=== PATIENT | female | born 1955 | race Caucasian/White ===

== ENCOUNTER → 2017-09-12 | Outpatient (CLI) | payer OTHER | LOC: M.RAD 12:58 | DX: Z12.31 Encounter for screening mammogram for malignant neoplasm of breast (principal) ==

== ENCOUNTER → 2019-02-04 | Outpatient (CLI) | payer OTHER | LOC: M.RAD 15:26 | DX: Z12.31 Encounter for screening mammogram for malignant neoplasm of breast (principal); M81.0 Age-related osteoporosis without current pathological fracture; N63.12 Unspecified lump in the right breast, upper inner quadrant; Z78.0 Asymptomatic menopausal state; Z96.642 Presence of left artificial hip joint ==

== ENCOUNTER → 2019-02-07 | Outpatient (CLI) | payer OTHER ==
[~2019-02-07] MED LIST: HYDROCODON-ACE1 EA11 PO; KEFLEX250 MG PO; LISINOPRIL10 MG PO
--- NOTE | 2019-02-18 12:05 | PATH ---
[address] [address] PATHOLOGY RPT PROCEDURE Name: MARKFLORENCIA YANNA Room: [facility] Lee#: [id number] Admission: 02/07/19 Date of : 59 Discharge: Report #: [id number] Path Case #: [id number] [facility] Accession Number: [id number] . 01 Material submitted: . breast - RIGHT BREAST. Modifiers: right . 01 Clinical history: . Right breast, 2.69 x 2.34 x 2.29 cm, 12:00, 2 cm from nipple . 02 Diagnosis: RIGHT BREAST, 12:00, 2 CM FROM NIPPLE, IMAGE GUIDED CORE BIOPSIES: - INFILTRATING LOBULAR CARCINOMA, LOW GRADE, SPANNING 10 MM, ASSOCIATED WITH CALCIFICATIONS. SEE COMMENT. LBQ/02/11/2019 . 02 Comment: Specimen type: Image guided core biopsies Tumor site: Right breast, 12:00, 2 cm from nipple Tumor quantitation: Approximately 90% of submitted tissues Histologic type: Lobular carcinoma Histologic grade: Low grade (I/III) Tubules, nuclei and mitoses: 3,1,1 LVSI: None identified Microcalcifications: Identified Markers: Breast tumor profile pending Block: A1 . The tumor infiltrates in the classic lobular fashion including abundant "[place] filing". Properly controlled immunohistochemical stains performed on A2 show the following results in the neoplastic cells, supporting the classification: . E-cadherin - Negative Keratin AE1/AE3 - Positive . No definite lobular carcinoma in situ and no ductal carcinoma in situ are seen. Breast tumor profile studies are pending on A1 and will be the subject of an addendum report. Mariaelena (acting [facility] Breast Navigator) notified at approximately 1510 on 02/08/2019. Reviewed with Dr. Jeferson Martines who agrees with the diagnosis. (MONA/db; 02/11/2019) . 02 Addendum: . Special studies report received from [facility], [address] [place] [address], [address], [place], [address], on case [id number], labeled with their number [id number], dated 02/16/2019. [place] [address] PATHOLOGY RPT PROCEDURE Name: FLORENCIA JULIAN Room: [facility]#: [id number] Admission: 02/07/19 Date of : 59 Discharge: Report #: [id number] Path Case #: [id number] Breast/Prognostic Marker Analysis . Specimen Site: Rt Breast,12:00, 2 cm FN, Breast Carcinoma (Biopsy) Specimen ID #: [id number] . ER (Estrogen Receptor) Present/Positive Percent: 98.00% Analysis: Manual Comments: Staining intensity: Strong . NV (Progesterone Receptor) Present/Positive Percent: 98.00% Analysis: Manual Comments: Staining intensity: Strong . HER2 Not Over-Expressed Score: 1+ Analysis: Manual . Ki-67 Borderline Proliferation Percent: 15.00% Analysis: Manual . Time to Fixation (Cold Ischemic Time): 3 minutes Duration of Fixation: 14 hours and 40 minutes Type of Fixative: 10% Neutral Buffered Formalin . at [employer]. Bernadine Cheatham M.D. Pathologist . . Methodology The HER2 Receptor protein expression is analyzed using the [employer] HER2 rabbit monoclonal antibody (clone 4B5). This assay is used for diagnostic determination of the HER2 protein over-expression in paraffin embedded, formalin fixed breast cancer tissue on the [employer] Benchmark. The specimen is processed using a polymer detection system. The membrane staining of the tumor is determined either by manual score or image analysis. This antibody is intended for in vitro diagnostic use. The score is reported as per package insert; 0, 1+, 2+, and 3+. This test is used for clinical purposes. . A rabbit monoclonal antibody (clone SP1) [place] [address] PATHOLOGY RPT PROCEDURE Name: FLORENCIA JULIAN Room: [facility]#: [id number] Admission: 02/07/19 Date of : 59 Discharge: Report #: [id number] Path Case #: [id number] Receptor is used to perform immunohistochemistry on routinely fixed (formalin) paraffin embedded tissue on the [employer] Benchmark. The specimen is processed using a polymer detection system. The percentage of stained tumor nuclei is determined either manually or by image analysis. This test is intended for in vitro diagnostic use. This test is used for clinical purposes. . A rabbit monoclonal antibody (clone 1E2) that recognized the Progesterone Receptor is used to perform immunohistochemistry on routinely fixed (formalin) paraffin embedded tissue on the [employer] Benchmark. The specimen is processed using a polymer detection system. The percentage of stained tumor nuclei is determined either manually or by image analysis. This test is intended for in vitro diagnostic use. This test is used for clinical purposes. . A rabbit monoclonal antibody (clone 30-9) that recognized Ki67 is used to perform immunohistochemistry on routinely fixed (formalin) paraffin embedded tissue on the [employer] Benchmark. The specimen is processed using a polymer detection system. The percentage of stained tumor nuclei is determined either manually or by image analysis. This test is intended for in vitro diagnostic use. This test is used for clinical purposes. . Intended Use: This antibody is intended for in vitro diagnostic (IVD) use. HER2 (4B5) is a rabbit monoclonal antibody intended for the semi-quantitative detection of HER2 antigen in sections of formalin-fixed, paraffin embedded normal and neoplastic tissue. . This antibody is intended for in vitro diagnostic (IVD) use. Estrogen Receptor (ER) (SP1) is a rabbit monoclonal antibody (IgG) that is intended for the qualitative detection of estrogen receptor (ER) antigen in sections of formalin-fixed, paraffin-embedded tissue. ER is a rabbit monoclonal antibody that recognizes human estrogen receptor alpha. . This antibody is intended for in vitro diagnostic (IVD) use. Progesterone Receptor (NV) (1E2) is a rabbit monoclonal antibody (IgG) that is intended for the qualitative detection of progesterone receptor (NV) antigen in sections of formalin fixed, paraffin embedded tissue. NV is a rabbit monoclonal antibody that recognizes the A and B forms of the human progesterone receptor. . This antibody is intended for in vitro diagnostic (IVD) use. Ki-67 (30-9) is a rabbit monoclonal antibody (IgG) directed against C-terminal portion of Ki-67 antigen. Staining for Ki-67 can be used to aid in assessing the proliferative activity of normal and neoplastic tissue. Ki-67 is a nuclear protein expressed in proliferating cells. During the cell cycle, the Ki-67 antigen is present in the G1, S, G2 and M phase but is absent in the G0 (quiescent phase). [place] [address] PATHOLOGY RPT PROCEDURE Name: FLORENCIA JULIAN Room: [facility].#: [id number] Admission: 02/07/19 Date of : 59 Discharge: Report #: [id number] Path Case #: [id number] . Disclaimer: This Test was performed by [facility] at [address] [address], [place], [address]. . [facility] is a business unit of [facility] a wholly-owned subsidiary of [employer]. . This assay has not been validated on decalcified tissues. Results should be interpreted with caution if this specimen was decalcified given the likelihood of false negativity on decalcified specimens. . Any image(s) that accompany this report is/are a door to door sales representative image(s) only and should not be used to render a diagnosis. . This interpretation is contingent on the specimen and the clinical information received. . For any special tests/stains performed, known positive cells or tissues are tested with each marker and examined to ensure positivity. Positive and negative internal controls, if present, react appropriately. . This analysis is an adjunct to the evaluation of the referring physician and does not represent a final diagnosis. . The immunohistochemistry tests performed at [facility] were validated on tissue fixed in 10% neutral buffered formalin. The performance characteristics of the tests performed on tissue processed in other fixatives is not known. . HER2 testing at [facility] is performed in compliance with the 2018 updated ASCO/CAP Clinical Practice Guideline Focused Update. If the result is EQUIVOCAL (2+), it must be confirmed by an alternative assay such as FISH or Dual GIANNA. REF: Christos BABB, ROSALBA Snow et al: Human Epidermal Growth Factor Receptor 2 Testing in Breast Cancer: ASCO/CAP Clinical Practice Guideline Focused Update. J Clin Oncol 36:9077-9812, 2018. . HER2 and ER/NV ASCO/CAP guidelines require fixation in neutral buffered formalin for a minimum of 6 and a maximum of 72 hours. Fixation times less than 6 hours may not adequately preserve cell proteins. Fixation times longer than 72 hours may cause excess cross-linking of proteins reducing the antigen available for staining. Either scenario can cause reduced staining; hence false negative results are possible and should be considered for these situations if the HER2 IHC score is less than 3+ or ER or NV is negative (no staining or <1% positive). It is recommended that specimens fixed longer than 72 hours with HER2 IHC scores less than 3+ be confirmed by HER2 FISH or Dual GIANNA. The time from biopsy/[place] [address] PATHOLOGY RPT PROCEDURE Name: FLORENCIA JULIAN Room: [facility] Lee#: [id number] Admission: 02/07/19 Date of : 59 Discharge: Report #: [id number] Path Case #: [id number] fixation in formalin (cold ischemic time) must be less than 1 hour. Time to fixation (cold ischemic time) greater than 1 hour should be interpreted with caution. HER2 testing, mainly HER2 by FISH, is particularly vulnerable since excessive cold ischemic time results in preferential loss of HER2 probe signals that may lead to false negative results. . SCORE STAINING PATTERN IN TUMOR CELLS INTERPRETATION RESULTS 0 No staining observed or incomplete, faint membrane staining in less than or equal to 10% of tumor cells. Negative 1+ Incomplete, faint membrane staining in greater than 10% of tumor cells. Negative 2+ Weak to moderate complete membrane staining observed in greater than 10% of tumor cells. Equivocal* *Must be confirmed by alternative assay (IHC/FISH/Dual GIANNA) 3+ Intense, complete membrane staining in greater than 10% of tumor cells. Positive . A complete copy of the report is on file. . Professional and Technical services performed by [email or web address] at [address] [address]. . ([facility] 02/18/2019) . [place]/02/18/2019 Addendum Electronically Signed by Lei Last MD, Pathologist . 02 Electronically signed: . Lei Last MD, Pathologist NPI- [id number] . 01 Gross description: . The specimen is received in formalin, labeled "Florencia Julian, right breast 12:00, 2 cm from nipple", are three fibrofatty cores and its fragments measuring 1.5 x 0.4 x 0.2 cm in aggregate. The specimen is entirely submitted in A1-A3. Specimen excised at: 0921 on 02/07/19, placed in formalin at: 0924 on 02/07/19, formalin exposure: Approximately 14 hours and 40 minutes. (SWS; 02/07/2019) [facility]/ . 02 Pathologist provided ICD-10: [facility] [address] [place] [address] PATHOLOGY RPT PROCEDURE Name: FLORENCIA JULIAN Room: [facility].#: [id number] Admission: 02/07/19 Date of : 59 Discharge: Report #: [id number] Path Case #: [id number] C50.911 . 02 CPT . 978128, [id number], [id number] Specimen Comment: A courtesy copy of this report has been sent to Specimen Comment: [phone], , . Specimen Comment: Report sent to ,DR FERNANDEZ / DR SORIA Performed at: [address], [place], [place] [address] MD Desmond Valadez MD Phone: [phone] Performed at: 02 [facility] [address], [place], [place] [id number] MD Lei Last MD Phone: [phone]
== END | disposition home or self-care (01) ==
LOC: M.ULTRA 08:05
DX: C50.911 Malignant neoplasm of unspecified site of right female breast (principal); R92.1 Mammographic calcification found on diagnostic imaging of breast; Z79.899 Other long term (current) drug therapy; Z79.891 Long term (current) use of opiate analgesic

== ENCOUNTER → 2019-02-19 | Outpatient (CLI) | payer OTHER ==
[2019-02-19 13:59] LABS: CREATININE 0.6 mg/dL (0.6-1.3)
== END ==
LOC: M.LAB 13:30 → M.MRI 14:30
PROVIDERS: Surgery
DX: C50.911 Malignant neoplasm of unspecified site of right female breast (principal)

== ENCOUNTER → 2019-03-13 | Day surgery (SDC) | payer OTHER ==
[~2019-03-13] VITALS: Ht 175.3 cm; Wt 72.6 kg
[2019-03-13 07:49] LABS: HEMATOCRIT 40.5 % (37.0-47.0); HEMOGLOBIN 13.5 gm/dL (12.0-15.0); MCH 30.3 pg (26.0-34.0); MCHC 33.3 g/dL (28.0-37.0); MPV 7.9 fl. (7.2-11.1); RBC 4.44 mil/uL (4.20-5.00); RDW-CV 14.1 % (10.5-14.5); WBC 3.6 thou/uL (4.0-11.0)
[2019-03-13 07:56] LABS: CALCIUM 9.1 mg/dL (8.5-10.1); CREATININE 0.6 mg/dL (0.6-1.3); POTASSIUM 3.9 mmol/L (3.5-5.1)
[2019-03-13 08:08] LABS: ALBUMIN 3.9 g/dL (3.4-5.0); TOTAL BILIRUBIN 0.4 mg/dL (<0.1-1.0); TOTAL PROTEIN 6.8 g/dL (6.4-8.2)
[2019-03-13 08:12] VITALS: BP 122/76
--- NOTE | 2019-03-13 10:30 | EKG ---
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
[2019-03-13 15:33] VITALS: BP 122/76
--- NOTE | 2019-03-20 15:07 | PATH ---
[address] [address] PATHOLOGY RPT PROCEDURE Name: CALLIE JULIAN Room: [facility]..#: [id number] Admission: 03/13/19 Date of : 59 Discharge: Report #: [id number] Path Case #: [id number] [facility] Accession Number: [id number] . 01 Material submitted: . PART A: lymph node - RIGHT AXILLARY SENTINEL LYMPH NODE #1 FS. Modifiers: right PART B: breast - RIGHT BREAST CANCER, LONG LATERAL, SHORT SUPERIOR, DOUBLE DEEP. Modifiers: right PART C: breast - RIGHT BREAST NEW MEDIAL MARGIN, STITCH PARSONS NEW MARGIN. Modifiers: right PART D: breast - RIGHT BREAST NEW SUPERIOR MARGIN, STITCH PARSONS NEW MARGIN. Modifiers: right PART E: breast - RIGHT BREAST NEW LATERAL MARGIN, STITCH PARSONS NEW MARGIN. Modifiers: right PART F: breast - RIGHT BREAST NEW INFERIOR MARGIN, STITCH PARSONS NEW MARGIN. Modifiers: right PART G: breast - RIGHT BREAST NEW POSTERIOR MARGIN, STITCH PARSONS NEW MARGIN. Modifiers: right PART H: breast - RIGHT BREAST NEW ANTERIOR MARGIN FRAGMENTED, STITCH PARSONS NEW MARGIN. Modifiers: right PART I: lymph node - RIGHT AXILLARY SENTINEL LYMPH NODE #2, NOT HOT, NOT BLUE. Modifiers: right PART J: breast - AXILLARY CONTENTS . 01 Clinical history: . Breast cancer A. Multiple matted nodes, hot, blue, max count 1398, out at 12:10, taken by pathology. . 02 Frozen section diagnosis: . FROZEN SECTION DIAGNOSIS INCLUDING TOUCH PREP: FSA1. Right axillary sentinel lymph node #1 multiple matted nodes, hot, max count 1398: - Two lymph nodes with metastatic carcinoma typical of lobular carcinoma. Additional three probable lymph nodes grossly identified. . Results are discussed in the operating room with Dr. Cazares and a note is entered into the medical record. (MONA:jd 03/13/2019) . . FROZEN SECTION GROSS DESCRIPTION: A. Received fresh from the operating room accompanied by a label marked "ZandraCallie yoder, right axillary sentinel lymph node #1 multiple matted nodes hot, max count 1398" and consists of an irregular segment of fatty tissue measuring 5.0 x 3.0 x 1.0 cm with palpable firm nodularity within it. Dr. Cazares notes she has a suspicion of metastatic tumor involving lymph nodes in which an MRI was negative for evidence of such and the patient has lobular carcinoma of the breast [place] [address] PATHOLOGY RPT PROCEDURE Name: CALLIE JULIAN Room: [facility]#: [id number] Admission: 03/13/19 Date of : 59 Discharge: Report #: [id number] Path Case #: [id number] is in progress. She requests intraoperative evaluation. The tissues are dissected and at least five nodules are identified, the largest measuring 8 mm in greatest dimension and this nodule as well as a second one are both bisected and noted to be firm kuhn throughout. The smaller nodule halves are inked black and a touch prep is prepared from each of the two nodules with one half from each of the two nodules submitted for frozen studies. The remainder of that tissue frozen is submitted in cassette A1. The other half of these two nodules are submitted in cassette A2 and additional tissues are submitted as follows: A3 - one nodule bisected A4 - four nodules A5 and A6 - remaining tissues composed predominantly of fat. (MONA:pit 03/13/2019) . Frozen section performed at [facility], [address] [place] [address]. [facility]/QTP . 02 Diagnosis: A. RIGHT AXILLARY SENTINEL LYMPH NODE #1: - EIGHT OF EIGHT LYMPH NODES WITH METASTATIC LOBULAR CARCINOMA, LOW GRADE WITH SINGLE LONGEST SPAN OF 11 MM, AND WITH EXTENSIVE EXTRANODAL INVOLVEMENT OF FATTY TISSUES. . B. RIGHT BREAST: - LOBULAR CARCINOMA, LOW GRADE, ADJACENT TO PRIOR BIOPSY CHANGES, SPANNING AT LEAST 27 MM, WITH INVOLVEMENT OF SUPERIOR MARGIN AND OF LATERAL MARGIN. SEE COMMENT. . C. Right breast new medial margin: - Benign breast tissue with luminal calcifications, negative for atypia. . D. Right breast new superior margin: - Benign breast tissue, negative for atypia. . E. RIGHT BREAST NEW LATERAL MARGIN: - LOBULAR CARCINOMA, LOW GRADE, SPANNING 2 MM, WITH INKED FINAL MARGIN FREE OF INVOLVEMENT AND LOCATED 2 MM AWAY. SEE COMMENT. . F. Right breast new inferior margin: - Benign breast tissue with luminal calcifications, negative for atypia. . G. RIGHT BREAST NEW POSTERIOR MARGIN: - LOBULAR CARCINOMA, LOW GRADE, SPANNING 1 MM, INVOLVING INKED NEW MARGIN. SEE COMMENT. . H. Right breast new anterior margin: - Benign breast tissue, negative for atypia. [address] [address] PATHOLOGY RPT PROCEDURE Name: CALLIE JULIAN Room: [facility]#: [id number] Admission: 03/13/19 Date of : 59 Discharge: Report #: [id number] Path Case #: [id number] . I. RIGHT AXILLARY SENTINEL LYMPH NODE #2: - METASTATIC LOBULAR CARCINOMA, LOW GRADE, INVOLVING ONE LYMPH NODE, WITH EXTENSIVE EXTRANODAL INVOLVEMENT OF FAT. SEE COMMENT. . J. AXILLARY CONTENTS: - TWENTY-ONE OF TWENTY-ONE LYMPH NODES WITH INVOLVEMENT BY METASTATIC LOBULAR CARCINOMA, LOW GRADE, WITH EXTENSIVE EXTRANODAL INVOLVEMENT OF FAT. SEE COMMENT. LB/03/19/2019 . 02 Comment: SURGICAL PATHOLOGY CANCER CASE SUMMARY . INVASIVE CARCINOMA OF THE BREAST: RESECTION Procedure ___ Excision Specimen Laterality ___ Right + Tumor Site + ___ Invasive carcinoma not specified Tumor Size ___ Greatest dimension of largest invasive focus >1 mm: At least 27 mm (see comment) Histologic Type ___ Invasive lobular carcinoma Histologic Grade ([place] Histologic Score) Glandular (Acinar)/Tubular Differentiation ___ Score 3 (<10% of tumor area forming glandular/tubular structures) Nuclear Pleomorphism ___ Score 1 (nuclei small with little increase in size in comparison with normal breast epithelial cells, regular outlines, uniform nuclear chromatin, little variation in size) Mitotic Rate ___ Score 1 (less than or equal to 3 mitoses per mm2) Overall Grade ___ Grade 1 (scores of 3, 4, or 5) + Tumor Focality + ___ Single focus of invasive carcinoma (see comment) Ductal Carcinoma In Situ (DCIS) ___ Not identified Margins Invasive Carcinoma Margins ___ Positive for invasive carcinoma: ___ Margin: Posterior Regional Lymph Nodes ___ Involved by tumor cells Number of Lymph Nodes with Macrometastases (>2 mm): 30 [place] [address] PATHOLOGY RPT PROCEDURE Name: MARKCALLIEALLY RAINES Room: [facility].#: [id number] Admission: 03/13/19 Date of : 59 Discharge: Report #: [id number] Path Case #: [id number] Size of Largest Metastatic Deposit: 11 mm Extranodal Extension ___ Present Number of Lymph Nodes Examined: 30 Number of [place] Nodes Examined: At least 2 (see comment) Treatment Effect + ___ No known presurgical therapy + Lymphovascular Invasion + ___ Not identified + Dermal Lymphovascular Invasion + ___ No skin present . PATHOLOGIC STAGE CLASSIFICATION (pTNM, AJCC 8TH EDITION) . Primary Tumor (pT) ___ pT2: Tumor >20 mm but less than or equal to 50 mm in greatest dimension Regional Lymph Nodes (pN) Category (pN) ___ pN3a: Metastases in 10 or more axillary lymph nodes (at least 1 tumor deposit larger than 2.0 mm) or metastases to the infraclavicular (Level III axillary lymph) nodes + Ancillary Studies: Performed previously ([id number]) + Estrogen Receptor (ER) + ___ Positive 98% + Progesterone Receptor (PgR) + ___ Positive 98% + HER2 (by immunohistochemistry) + ___ Negative (Score 1+)/Not overexpressed + Ki-67 + ___ 15% + Microcalcifications + ___ Present in non-neoplastic tissue + Clinical History + ___ Previous right breast 12:00 2 cm from nipple image guided core biopsy showing infiltrating lobular carcinoma, low grade, spanning 10 mm performed around 02/07/2019 ([id number]) . The primary tumor within the breast shows extensive typical lobular infiltrative pattern of " filing" and extension through individual adipocytes and a focus of tumor is seen to involve the final posterior surgical margin in G2 where a properly controlled keratin AE1/AE3 stain highlights the neoplastic involvement. Involvement of the posterior margin was not seen in the primary lumpectomy specimen (A) and the total span may be somewhat larger than 27 mm. The initial superior and lateral margins were involved in the primary lumpectomy. However, additional final margins clear the lateral aspect by 2 mm and the superior aspect by 7 mm. Every lymph node found is seen to be involved by metastatic tumor and extensive extranodal extension is seen in [place] [address] PATHOLOGY RPT PROCEDURE Name: CALLIE JULIAN [id number] Admission: 03/13/19 Date of : 59 Discharge: Report #: [id number] Path Case #: [id number] At least two sentinel lymph nodes are identified although in specimen A there are noted to have been eight lymph nodes found. Properly controlled keratin AE1/AE3 stains performed on A1 and I1 highlight neoplastic involvement. . Per request of Dr. Hanh Cazares on 03/14/2019, repeat breast tumor profile studies are pending on B7 and will be the subject of an addendum report. (MONA/db; 03/19/2019) . 02 Addendum: . Special studies report received from [facility], [address] [place] [address], [address], [place], [address], on case [id number], labeled with their number [id number], dated 03/20/2019. . Breast/Prognostic Marker Analysis . Specimen Site: Rt Breast, Breast Cancer (Lumpectomy) Specimen ID #: [id number] . ER (Estrogen Receptor) Present/Positive Percent: 95.00% Analysis: Manual Comments: Staining intensity: Moderate to strong . PA (Progesterone Receptor) Present/Positive Percent: 80.00% Analysis: Manual Comments: Staining intensity: Moderate to strong . HER2 Not Over-Expressed Score: 0 Analysis: Manual . Ki-67 High Proliferation Percent: 30.00% Analysis: Manual . Time to Fixation (Cold Ischemic Time): 17 minutes Duration of Fixation: Not Provided Type of Fixative: 10% Neutral Buffered Formalin . [facility] Bernadine Che[place] [address] PATHOLOGY RPT PROCEDURE Name: CALLIE JULIAN [facility] [id number] Admission: 03/13/19 Date of : 59 Discharge: Report #: [id number] Path Case #: [id number] . Methodology The HER2 Receptor protein expression is analyzed using the [place] HER2 rabbit monoclonal antibody (clone [id number]). This assay is used for diagnostic determination of the HER2 protein over-expression in paraffin embedded, formalin fixed breast cancer tissue on the [employer]. The specimen is processed using a polymer detection system. The membrane staining of the tumor is determined either by manual score or image analysis. This antibody is intended for in vitro diagnostic use. The score is reported as per package insert; 0, 1+, 2+, and 3+. This test is used for clinical purposes. . A rabbit monoclonal antibody (clone SP1) that recognized the Estrogen Receptor is used to perform immunohistochemistry on routinely fixed (formalin) paraffin embedded tissue on the [employer] Bench[employer]. The specimen is processed using a polymer detection system. The percentage of stained tumor nuclei is determined either manually or by image analysis. This test is intended for in vitro diagnostic use. This test is used for clinical purposes. . A rabbit monoclonal antibody (clone 1E2) that recognized the Progesterone Receptor is used to perform immunohistochemistry on routinely fixed (formalin) paraffin embedded tissue on the [employer] Benchmark. The specimen is processed using a polymer detection system. The percentage of stained tumor nuclei is determined either manually or by image analysis. This test is intended for in vitro diagnostic use. This test is used for clinical purposes. . A rabbit monoclonal antibody (clone 30-9) that recognized Ki67 is used to perform immunohistochemistry on routinely fixed (formalin) paraffin embedded tissue on the [employer] Benchmark. The specimen is processed using a polymer detection system. The percentage of stained tumor nuclei is determined either manually or by image analysis. This test is intended for in vitro diagnostic use. This test is used for clinical purposes. . Intended Use: This antibody is intended for in vitro diagnostic (IVD) use. HER2 (4B5) is a rabbit monoclonal antibody intended for the semi-quantitative detection of HER2 antigen in sections of formalin-fixed, paraffin embedded normal and neoplastic tissue. . This antibody is intended for in vitro diagnostic (IVD) use. Estrogen Receptor (ER) (SP1) is a rabbit monoclonal antibody (IgG) that is intended for the qualitative detection of estrogen receptor (ER) antigen in sections of formalin-fixed, paraffin-embedded tissue. ER is a rabbit monoclonal antibody that recognizes human estrogen receptor alpha. . This antibody is intended for in vitro diagnostic (IVD) use. Progesterone Receptor (PA) (1E2) is a rabbit monoclonal antibody (IgG) [place] [address] PATHOLOGY RPT PROCEDURE Name: CALLIE JULIAN Room: [facility].#: [id number] Admission: 03/13/19 Date of : 59 Discharge: Report #: [id number] Path Case #: [id number] for the qualitative detection of progesterone receptor (PA) antigen in sections of formalin fixed, paraffin embedded tissue. PA is a rabbit monoclonal antibody that recognizes the A and B forms of the human progesterone receptor. . This antibody is intended for in vitro diagnostic (IVD) use. Ki-67 (30-9) is a rabbit monoclonal antibody (IgG) directed against C-terminal portion of Ki-67 antigen. Staining for Ki-67 can be used to aid in assessing the proliferative activity of normal and neoplastic tissue. Ki-67 is a nuclear protein expressed in proliferating cells. During the cell cycle, the Ki-67 antigen is present in the G1, S, G2 and M phase but is absent in the G0 (quiescent phase). . . Disclaimer: This Test was performed by [facility] at [address], [address]. . [facility] is a business unit of [facility] a wholly-owned subsidiary of [employer]. . This assay has not been validated on decalcified tissues. Results should be interpreted with caution if this specimen was decalcified given the likelihood of false negativity on decalcified specimens. . Any image(s) that accompany this report is/are a sales representative metals image(s) only and should not be used to render a diagnosis. . This interpretation is contingent on the specimen and the clinical information received. . For any special tests/stains performed, known positive cells or tissues are tested with each marker and examined to ensure positivity. Positive and negative internal controls, if present, react appropriately. . This analysis is an adjunct to the evaluation of the referring physician and does not represent a final diagnosis. . The immunohistochemistry tests performed at [facility] were validated on tissue fixed in 10% neutral buffered formalin. The performance characteristics of the tests performed on tissue processed in other fixatives is not known. . HER2 testing at [facility] is performed in compliance with the 2018 updated ASCO/CAP Clinical Practice Guideline Focused Update. If the result is EQUIVOCAL (2+), it must be confirmed by an alternative assay such as FISH [place] [address] PATHOLOGY RPT PROCEDURE Name: CALLIE JULIAN Room: [facility]oyd.#: [id number] Admission: 03/13/19 Date of : 59 Discharge: Report #: [id number] Path Case #: [id number] REF: Christso BABB, ROSALBA Snow et al: Human Epidermal Growth Factor Receptor 2 Testing in Breast Cancer: ASCO/CAP Clinical Practice Guideline Focused Update. J Clin Oncol 36:2083-9411, 2018. . HER2 and ER/PA ASCO/CAP guidelines require fixation in neutral buffered formalin for a minimum of 6 and a maximum of 72 hours. Fixation times less than 6 hours may not adequately preserve cell proteins. Fixation times longer than 72 hours may cause excess cross-linking of proteins reducing the antigen available for staining. Either scenario can cause reduced staining; hence false negative results are possible and should be considered for these situations if the HER2 IHC score is less than 3+ or ER or PA is negative (no staining or <1% positive). It is recommended that specimens fixed longer than 72 hours with HER2 IHC scores less than 3+ be confirmed by HER2 FISH or Dual GIANNA. The time from biopsy/excision to fixation in formalin (cold ischemic time) must be less than 1 hour. Time to fixation (cold ischemic time) greater than 1 hour should be interpreted with caution. HER2 testing, mainly HER2 by FISH, is particularly vulnerable since excessive cold ischemic time results in preferential loss of HER2 probe signals that may lead to false negative results. . SCORE STAINING PATTERN IN TUMOR CELLS INTERPRETATION RESULTS 0 No staining observed or incomplete, faint membrane staining in less than or equal to 10% of tumor cells. Negative 1+ Incomplete, faint membrane staining in greater than 10% of tumor cells. Negative 2+ Weak to moderate complete membrane staining observed in greater than 10% of tumor cells. Equivocal* *Must be confirmed by alternative assay (IHC/FISH/Dual GIANNA) 3+ Intense, complete membrane staining in greater than 10% of tumor cells. Positive . A complete copy of the report is on file. . Professional and Technical services performed by [facility] at [address], [place] [address]. . (AMJ 03/20/2019) . AZJ/03/20/2019 Addendum Electronically Signed by Lei Last MD, Pathologist . 02 Electronically signed: [place] [address] PATHOLOGY RPT PROCEDURE Name: CALLIE JULIAN Room: [facility]#: [id number] Admission: 03/13/19 Date of : 59 Discharge: Report #: [id number] Path Case #: [id number] Lei Last MD, Pathologist NPI- [id number] . 01 Gross description: . A. SEE FROZEN SECTION FOR GROSS DESCRIPTION. . B. The specimen is received in formalin, labeled "Callie Julian, right breast cancer long lateral short superior double deep" and consists of an oriented 20 g lumpectomy specimen with a long suture lateral, short suture superior, and double deep. It measures 4.9 cm A-P, 3.0 cm S-I, 2.0 cm L-M and is inked as follows: superior-blue, inferior-green, medial-red, lateral-yellow, anterior-orange, and posterior-black. It is sectioned from anterior to posterior revealing a stellate mass measuring 2.7 x 1.7 x 1.5 cm which extends from the margins as follows: Grossly abuts lateral, 0.2 cm medial, 0.1 cm superior, 0.2 cm inferior, and greater than 0.5 cm anterior and posterior. The rest of the parenchyma consists of yellow lobulated tissue no additional masses. It is entirely submitted as follows: . B1: Anterior, perpendicular B2-B17: Entire mid specimen submitted from anterior to posterior B18: Posterior, perpendicular . The specimen was collected at 10:51 AM on 03/13/2019 and placed in formalin at 11:08 AM. The cold ischemic time is 17 minutes and the total formalin fixation time is greater than 6 hours but less than 72 hours. . C. The specimen is received in formalin, labeled "Callie Julian, right breast new medial margin stitch parsons new margin" and consists of a 1 g segment of yellow orange fibroadipose tissue measuring 2.4 x 1.7 cm and averaging 0.5 cm in depth. A suture is present at the "new margin" and this margin is inked red. Sectioning reveals no gross lesions and the specimen is entirely submitted in C1-C2. . D. The specimen is received in formalin, labeled "Callie Julian, right breast new superior margin stitch parsons new margin" and consists of a 1 g segment of yellow lobulated tissue measuring 2.0 x 1.6 cm and averaging 0.7 cm in depth. A suture is present at the "new margin" and this margin is inked blue. It is sectioned revealing no gross lesions and entirely submitted in D1-D2. . E. The specimen is received in formalin, labeled "Callie Julian, right breast new lateral margin stitch parsons new margin" and consists of a 3 g segment of yellow fibroadipose tissue measuring 3.5 x 2.5 cm and averaging 0.7 cm in depth. A suture is present at the "new margin" and this margin is inked yellow. Sectioning reveals partially fibrotic cut surfaces with possible residual tumor. The specimen is entirely submitted in E1-E5. . F. The specimen is received in formalin, labeled "renettaCallie calvert, [place] [address] PATHOLOGY RPT PROCEDURE Name: CALLIE JULIAN Room: [facility]#: [id number] Admission: 03/13/19 Date of : 59 Discharge: Report #: [id number] Path Case #: [id number] breast new inferior margin stitch parsons new margin" and consists of a 2 g segment of yellow lobulated tissue measuring 2.5 x 1.6 cm and averaging 0.7 cm in depth. A suture is present designating the "new margin" and this margin is inked green. Sectioning reveals a focus of white khun fibrous tissue. The specimen is entirely submitted in F1-F2. . G. The specimen is received in formalin, labeled "Callie Julian, right breast new posterior margin stitch parsons new margin" and consists of a 2 g segment of yellow lobulated tissue measuring 2.4 x 1.9 cm and averaging 0.5 cm in depth. A suture is present designating the "new margin" and this margin is inked black. It is sectioned revealing no gross lesions and entirely submitted in G1-G2. . H. The specimen is received in formalin, labeled "Callie Julian, right breast new anterior margin stitch parsons new margin" and consists of 2 segments of yellow lobulated tissue weighing 1 g combined and measuring 2.2 x 1.4 cm and 1.9 x 1.4 cm and each averaging 0.5 cm in depth. A suture is present on both segments designating the "new margin" and these margins are inked orange. They are sectioned revealing no gross lesions and entirely submitted in H1-H2. . I. The specimen is received in formalin, labeled "Callie Julian, right axillary sentinel lymph node 2 not hot, not blue, palpable" and consists of a lymph node candidate measuring 0.5 x 0.4 x 0.2 cm. It is bisected and entirely submitted in I 1. . J. The specimen is received in formalin, labeled "renettaCallie yoder, axillary contents" and consists of 3 segments of yellow lobulated tissue measuring 10.5 x 6.8 x 1.5 cm in aggregate. Present within are multiple lymph node candidates measuring between 0.2 cm and 2.5 cm. Many of these lymph nodes show white cut surfaces. These lymph nodes are entirely submitted as follows: . J1. One serially sectioned lymph node candidate J2-J4: 1 serially sectioned candidate J5: 2 bisected lymph nodes, one inked black J6: 2 bisected lymph nodes, one inked black J7: 2 bisected lymph nodes, one inked black J8: One trisected lymph node J9: 5 intact lymph node candidates J10: 1 serially sectioned lymph node J11: One serially sectioned lymph node candidate J12-J14: Largest lymph node candidate, serially sectioned J15-J16: 1 serially sectioned lymph node (SDY; 03/14/2019) SYU/QTP . 02 Pathologist provided ICD-10: C77.3, C50.911, Z17.0 [place] [address] PATHOLOGY RPT PROCEDURE Name: ZANDRACALLIE YODER YANNA Room: [facility].Cora#: [id number] Admission: 03/13/19 Date of : 59 Discharge: Report #: [id number] Path Case #: [id number] . 02 CPT . [id number], [id number], [id number], [id number], [id number], [id number], [id number], [id number], [id number], [id number], [id number], [id number] Specimen Comment: A courtesy copy of this report has been sent to Specimen Comment: [phone], . Specimen Comment: Report sent to / DR SORIA Performed at: [address], [place], [place] [id number] MD Desmond Valadez MD Phone: [phone] Performed at: 02 [facility] [address], [place], [place] [address] MD Lei Last MD Phone: [phone]
--- NOTE | 2019-03-27 13:56 | OP ---
[address] [address] OPERATIVE REPORT Name: MARKFLORENCIA YANNA Room: [facility].#: [id number] Admission: 03/13/19 Attend Phys: Hanh Cazares MD Discharge: Date of : 59 Report #: [id number] THIS REPORT FOR: //name// CC: Yamilet Cazares DATE OF SERVICE: 03/13/2019 PREOPERATIVE DIAGNOSIS: Malignant neoplasm, overlapping sites of right female breast. POSTOPERATIVE DIAGNOSES: 1. Malignant neoplasm, overlapping sites of right female breast. 2. Acquired deformity, right breast. PROCEDURES: 1. Injection of blue dye. 2. Right breast needle localized lumpectomy. 3. Right breast reconstruction using local tissue flaps 3 x 3 cm x 2 cm and BioZorb. 4. BioZorb placement 2 x 3. 5. Right axillary sentinel lymph node biopsy. 6. Completion right axillary dissection. COMPLICATIONS: None. ESTIMATED BLOOD LOSS: 20 mL. DRAINS: Round ROSALINA to the right axilla. SPECIMENS: 1. Right breast cancer. 2. Right breast new medial margin. 3. Right breast new superior margin. 4. Right breast new lateral margin. 5. Right breast new inferior margin. 6. Right breast new posterior margin. 7. Right breast new anterior margin. 8. Right axillary sentinel lymph node #1, multiple matted nodes hot, blue, max count 1398. 9. Right axillary sentinel lymph node #2, not hot, not blue, palpable. 10. Axillary contents. FINDINGS: Grossly suspicious lymph nodes in the right axilla, which there were too numerous to count. Frozen section was performed and revealed at least 5 suspicious nodes, 2 of them were tested with the [place] [address] OPERATIVE REPORT Name: FLORENCIA FLORES Room: [facility]#: [id number] Admission: 03/13/19 Attend Phys: Hanh Cazares MD Discharge: Date of : 59 Report #: [id number] diffuse metastatic axillary disease. DISPOSITION: Stable to PACU. Other incision, 4 cm in length, 2 cm from the nipple at the 11 o'clock position, periareolar. INDICATIONS: The patient is a 63-year-old female who had imaging on [place] showing a 3-cm irregular hypoechoic mass at the 12 o'clock right breast and normal-appearing axillary lymph nodes. A biopsy on 02/07/2019 showed grade 1 invasive lobular carcinoma, ER/TN positive, HER-2 negative, Ki-67 15%. MRI on 02/19/2019 confirmed the primary mass only at 3.3 cm. The size of the tumor was concerning in its rapid growth, but I discussed with Dr. Fortune preoperatively. We did not feel that she would benefit from neoadjuvant chemotherapy given the low grade of the tumor and the low Ki-67. Therefore, we elected to proceed with surgery first. Preoperative MRI showed no evidence of distant disease. PROCEDURE IN DETAIL: The patient was brought to the operating room after informed consent had been obtained. She was placed under general anesthesia in the supine position with the right arm extended. A 5 mL of Lymphazurin blue was injected in the intradermal and subdermal location in the upper outer periareolar region of the right breast. The right breast and axilla were then prepped and draped in normal sterile manner. Prior to all skin incisions, a combination of 1% lidocaine plain and 0.5% Marcaine with epinephrine were used. A periareolar skin incision was made with a knife. This was deepened into the subcutaneous tissues. A path was created toward the wire exit site. The wire was then grasped with 2 hemostats and Bovie electrocautery was used to excise a lump of tissue surrounding the pathway of the wire down and the palpable mass. Once completely removed, it was labeled for orientation purposes, placed in the mammographic specimen tray and sent for mammographic evaluation. Mammogram confirmed that the clip and the lesion were within the specimen. Attention was then turned to the lumpectomy cavity. It was copiously irrigated with normal saline. I proceeded with excision of margins. The region of the medial margin was grasped with an Allis clamp. The Bovie electrocautery was used to excise a thin rim of tissue to encompass the new medial margin. This was repeated in the superior, lateral, inferior, posterior and anterior margins, all of these were sent for permanent specimen. The wound bed was again then examined and noted to be adequately hemostatic. I then proceeded with mobilization of tissue in the posterior plane to facilitate coverage over the pectoralis fascia so that the BioZorb was not sitting on the pectoralis muscle. Once mobilized, the tissues over the pectoralis muscle were reapproximated with the pursestring suture to cover the fascia fully with 3-0 Vicryl suture. Four stay sutures of 3-0 PDS were placed in 4 different quadrants. The BioZorb sizers were then used to and 2 x 3 was felt to fill the cavity without undue bulk. The 2 x 3 BioZorb was then opened onto the field. I then changed into sterile gloves and placed the [address] [place] [id number] OPERATIVE REPORT Name: FLORENCIA FLORES Room: [facility]#: [id number] Admission: 03/13/19 Attend Phys: Hanh Cazares MD Discharge: Date of : 59 Report #: [id number] x 3 BioZorb in the cavity and it was secured in place with the 4 stay sutures. I then proceeded with further mobilization of the breast tissue circumferentially in order to facilitate closure over the BioZorb. This was completed in all 4 directions superiorly, medially, inferiorly and laterally, mobilizing tissue flaps of adequate size to adequately cover the BioZorb device. Due to the volume of tissue removed and the size of the breast, this was quite large, she did still have a little bit of a defect. The deep dermal layers were then closed with interrupted 3-0 Vicryl sutures. Skin was closed with 4-0 Monocryl in a subcuticular manner. Attention was then turned to the axilla. The site of highest activity in the axilla was marked out with a marking pen and skin incision was made in this region with a knife. This was deepened through the subcutaneous tissues using the Bovie electrocautery. Weitlaner retractor was placed. The axillary to fascia was divided and a firm blue lymph node was identified. As I was dissecting in this area, it was clear that this was associated with a chain of multiple extremely firm nodes, and these were approximately 5-6 nodes within the specimen and these were all excised in 1 large specimen. These were extremely suspicious for metastatic disease. I then asked Pathology to come and evaluate the nodes. He agreed they seemed suspicious and proceeded with frozen section for 2 of those nodes, both of which returned as metastatic disease. She had a large amount of additional palpable disease within the axilla. I spoke with Dr. Fortune who agreed with proceeding with full axillary dissection at this time. The skin incision was extended to an S-shaped incision for exposure to the axilla. This incision was deepened to the subcutaneous tissues using the Bovie electrocautery. The dissection was extended over to the pectoralis muscle. The border of the pectoralis muscle was delineated. Attention was then turned superiorly to the level of the axillary vein. The tissue overlying the axillary vein was divided with the Bovie electrocautery until the axillary vein was identified. Once I reached the level of the axillary vein, the tissue was then divided with hemostats and Ligaclips and Metzenbaum scissors. Dissection then proceeded inferior to the level of the axillary vein, medially toward the chest wall as well as laterally. Dissection was very difficult due to multiple nodes that were matted down to crucial neurovascular bundles. In these areas, dissection was performed as close to the neurovascular structures as possible. Both the long thoracic and thoracodorsal nerve were identified. The thoracodorsal nerve was intimately involved with matted lymph nodes. I spent probably over an hour dissecting the thoracodorsal nerve from the densely adherent matted group of lymph nodes. I did identify both the incoming and outgoing branch of the thoracodorsal nerve prior to dissection, and they were both still intact, and at the end of the procedure, I was able to activate this nerve as well. The long thoracic nerve was identified throughout the dissection and identified multiple times. It was not able to activate it at the completion of the procedure, but it was clearly not injured. The specimen, given its inability to be easily divided from the neurovascular structures, was taken out in segments. There were 2-3 segments of axillary contents that were all sent within the specimen. Once completely removed, the axilla was copiously irrigated with normal saline. It was noted to be [facility] [address] [place] [address] OPERATIVE REPORT Name: FLORENCIA FLORES Room: [facility]#: [id number] Admission: 03/13/19 Attend Phys: Hanh Cazares MD Discharge: Date of : 59 Report #: [id number] adequately hemostatic. A 15-Lao Mic drain was placed and secured into the skin with 3-0 nylon suture. The axillary fascia was reapproximated with interrupted sutures of 3-0 Vicryl. The deep dermal layers were closed with interrupted 3-0 Vicryl sutures. Skin was closed with 4-0 Monocryl in a subcuticular manner. Both wounds were dressed with Dermabond dressing. The patient tolerated the procedure well. Sponge, lap and needle counts were correct x 2 at the end of the procedure. She was transferred to recovery in stable condition. <ELECTRONICALLY SIGNED> By: Hanh Cazares MD 03/27/19 1356 1537 1955Hanh Cazares MD /sheila
== END | disposition home or self-care (01) ==
LOC: M.SUR 07:17 → M.RAD 08:00 → EDSTATUS 08:00 → M.SUR 08:00
PROVIDERS: Surgery
DX: C50.911 Malignant neoplasm of unspecified site of right female breast (principal); C77.3 Secondary and unspecified malignant neoplasm of axilla and upper limb lymph nodes; Z17.0 Estrogen receptor positive status [ER+]; I10 Essential (primary) hypertension; Z90.49 Acquired absence of other specified parts of digestive tract; Z98.890 Other specified postprocedural states; Z79.899 Other long term (current) drug therapy; Z89.511 Acquired absence of right leg below knee; Z89.622 Acquired absence of left hip joint

== ENCOUNTER → 2019-04-03 | Outpatient (CLI) | payer OTHER | LOC: M.CT 03-20 13:20 → M.LAB 08:30 → M.CT 09:30 | DX: C50.411 Malignant neoplasm of upper-outer quadrant of right female breast (principal); J98.4 Other disorders of lung; M25.78 Osteophyte, vertebrae; M48.04 Spinal stenosis, thoracic region; R91.1 Solitary pulmonary nodule; M17.12 Unilateral primary osteoarthritis, left knee; M19.011 Primary osteoarthritis, right shoulder; M19.012 Primary osteoarthritis, left shoulder; M19.072 Primary osteoarthritis, left ankle and foot; M19.071 Primary osteoarthritis, right ankle and foot; Z17.0 Estrogen receptor positive status [ER+]; Z96.642 Presence of left artificial hip joint; Z96.651 Presence of right artificial knee joint ==

== ENCOUNTER → 2019-04-15 | Day surgery (SDC) | payer OTHER ==
[~2019-04-15] MED LIST changes: +NORCO 5-325 TA1 EAC1 PO
[2019-04-15 06:55] LABS: HEMATOCRIT 42.7 % (37.0-47.0); HEMOGLOBIN 14.1 gm/dL (12.0-15.0); MCH 30.3 pg (26.0-34.0); MCV 91.9 fL (80.0-100.0); MPV 8.3 fl. (7.2-11.1); RBC 4.64 mil/uL (4.20-5.00); RDW-CV 14.5 % (10.5-14.5); WBC 5.4 thou/uL (4.0-11.0)
[2019-04-15 07:03] LABS: CREATININE 0.7 mg/dL (0.6-1.3); POTASSIUM 4.3 mmol/L (3.5-5.1)
[2019-04-15 07:08] LABS: TOTAL BILIRUBIN 0.4 mg/dL (<0.1-1.0); TOTAL PROTEIN 7.1 g/dL (6.4-8.2)
--- NOTE | 2019-04-17 18:06 | PATH ---
[facility] [address] [place] [address] PATHOLOGY RPT PROCEDURE Name: FLORENCIA JULIAN Room: [facility] M.R.#: [id number] Admission: 04/15/19 Date of : 59 Discharge: Report #: [id number] Path Case #: [id number] [facility] Accession Number: [id number] . 01 Material submitted: . breast - RIGHT BREAST LUMPECTOMY WITH POSTERIOR MARGINS-STITCH PARSONS NEW MARGIN. Modifiers: right . 01 Clinical history: . Breast cancer . 02 Diagnosis: Right breast lumpectomy with posterior margins: - Benign breast tissue with changes of prior surgery including several suture granulomata, luminal calcifications and no residual malignancy or atypia. . (MONA:mml; 04/17/2019) QLM/04/17/2019 . 02 Electronically signed: . Lei Last MD, Pathologist NPI- [id number] . 01 Gross description: . The specimen is received in formalin, labeled "Florencia Julian R breast lumpectomy with posterior margins-stitch parsons new margins" and consists of a 4 g segment of yellow orange fibroadipose tissue measuring 2.8 x 2.3 cm and averaging 1.2 cm in greatest thickness. A suture is present designating the "new margins" and this margin is inked black. Sectioning reveals previous biopsy changes at the old margin with a focus of possible residual tumor measuring 0.5 x 0.3 cm. The specimen is entirely submitted in A1-A5 (possible residual tumor in A2). . The specimen was excised on 04/15/2019 with no time in formalin. The cold ischemic time is unknown and the time out of formalin is 11:50 PM on 04/16/2019. (SDY; 04/16/2019) SYU/SYU . 02 Pathologist provided ICD-10: L92.9, C50.911 . 02 CPT . 508315 Specimen Comment: A courtesy copy of this report has been sent to Specimen Comment: [phone], . Specimen Comment: Report sent to / [place] [address] PATHOLOGY RPT PROCEDURE Name: FLORENCIA JULIAN Room: [facility]#: [id number] Admission: 04/15/19 Date of : 59 Discharge: Report #: [id number] Path Case #: [id number] Performed at: 01 [facility] aRdha Villalba [address], [place] [id number] MD Desmond Valadez MD Phone: [phone] Performed at: 02 [facility] [address], [place], [place] [id number] MD Lei Last MD Phone: [phone]
--- NOTE | 2019-05-15 12:58 | OP ---
[address] [address] OPERATIVE REPORT Name: LEONARDLISAFLORENCIA RAINES Room: [facility].#: [id number] Admission: 04/15/19 Attend Phys: Hanh Cazares MD Discharge: Date of : 59 Report #: [id number] THIS REPORT FOR: //name// CC: Yamilet Cazares DATE OF SERVICE: 04/15/2019 PREOPERATIVE DIAGNOSIS: Malignant neoplasm overlapping sites, right female breast. POSTOPERATIVE DIAGNOSIS: Malignant neoplasm overlapping sites, right female breast. PROCEDURES: 1. Left subclavian vein MediPort placement with fluoroscopic guidance. 2. Reexcision of posterior margin right breast lumpectomy site with replacement of 2 x 3 BioZorb. SURGEON: Hanh Cazares MD LEGAL ARBITRATOR: None. ANESTHESIA: General anesthesia. ESTIMATED BLOOD LOSS: 3 mL. COMPLICATIONS: None. FINDINGS: Tip of the MediPort catheter in the SVC and well healed lumpectomy bed. Incisions via her previous lumpectomy incision. INDICATIONS: The patient is a very pleasant 63-year-old female with imaging on 02/04/2019 showing a 3 cm irregular hypoechoic mass at the 12 o'clock right breast, normal appearing lymph nodes. Biopsy on 02/07/2019 showed grade 1 invasive lobular carcinoma, ER/NE positive, HER-2 negative, Ki-67 of 15%. An MRI initially confirmed the primary mass only. She underwent a lumpectomy with BioZorb and a sentinel node biopsy converted to a full axillary dissection on 03/13/2019 with final pathology 2.7 cm invasive lobular carcinoma. Final margins involved the posterior margin and 30 of 30 nodes positive for metastatic disease that was pathologic T2 N3 M0, stage 3B breast cancer. She underwent distant staging, was found to have no obvious evidence of distant disease. The plan was for adjuvant chemotherapy and given no distant disease the plan was for reexcision of the posterior margin, therefore risks and benefits of reexcision of posterior margin and MediPort were discussed with the patient and delineated in the H and P and [place] [address] OPERATIVE REPORT Name: FLORENCIA FLORES Room: [facility].#: [id number] Admission: 04/15/19 Attend Phys: Hanh Cazares MD Discharge: Date of : 59 Report #: [id number] DESCRIPTION OF PROCEDURE: The patient was brought to the operating room after informed consent had been obtained, she was placed under general anesthesia in the supine position. Bilateral arms were tucked and a shoulder roll was placed. Bilateral chest and neck were then prepped and draped in normal sterile manner. Attention was first turned to the side of lumpectomy while we were waiting for Radiology, the lumpectomy site with appropriate skin anesthesia, prior to all skin incisions a combination of 1% lidocaine plain and 0.5% Marcaine with epinephrine was used. Skin incision was made in the previous lumpectomy incision with a knife. This was deepened into the subcutaneous tissues using the knife and through the previous sutures. The seroma cavity was entered and blunt dissection was performed exposing her previous deeper sutures, which were incised to open the cavity. At this point Radiology came into the room, therefore we covered this incision and protected and attention was turned to the MediPort site. The left subclavian vein was accessed on the first attempt with the needle. The guidewire was passed without difficulty. Fluoroscopy confirmed appropriate placement in the SVC. The skin incision was then made for the port pocket with a knife. This was deepened into the subcutaneous tissues using the Bovie electrocautery. Using blunt dissection, a pocket was created of adequate size for the MediPort device. The dilator and sheath were then introduced over the guidewire under fluoroscopic visualization under Seldinger technique. The guidewire and dilator were then removed and the MediPort tubing was introduced through the sheath under Seldinger technique. The breakaway sheath was removed. Tubing was trimmed to the appropriate length and affixed to the MediPort device. This was all done with fluoroscopic visualization. Once this was attached, the MediPort was placed in the previously created pocket, it aspirated and flushed with injectable saline without difficulty, final fluoroscopy films confirmed appropriate placement, it was then locked with 5 mL of heparin lock solution. The deep dermal layers were then closed with interrupted 3-0 Vicryl suture. Skin was closed with 4-0 Monocryl in a subcuticular manner. This breast wound was covered and attention was returned to the breast. The BioZorb was grasped and its stay sutures were cut removing it from the pocket. The well-formed seroma cavity was identified, it was copiously irrigated with normal saline. The Bovie electrocautery was used to excise lumps of tissue to encompass the new posterior margin, this was taken down to the level of the pectoralis muscle. Once completely removed, this was labeled for orientation purposes and handed off as a permanent specimen. Some mobilization was performed in order to cover the pectoralis muscle. These layers were then reapproximated over the pectoralis muscle with interrupted sutures of 3-0 Vicryl, 4 stay sutures of 3-0 PDS were then placed in 4 corners of the lumpectomy cavity. A new 2 x 3 MediPort was opened upon donning sterile gloves, I removed it from its packet and placed in the lumpectomy bed and was secured in place with the 4 stay sutures. The subcutaneous tissues were then reapproximated with interrupted sutures of 3-0 Vicryl over the BioZorb for coverage. The deep dermal layers were then closed with interrupted 3-0 Vicryl sutures and skin was closed with 4-0 Monocryl in a [place] [address] OPERATIVE REPORT Name: FLORENCIA FLORES Room: [facility].#: [id number] Admission: 04/15/19 Attend Phys: Hanh Cazares MD Discharge: Date of : 59 Report #: [id number] wounds were then dressed with Dermabond dressing. The patient tolerated the procedure well. Sponge, lap and needle counts were correct x 2 at the end of procedure. She was transferred to Recovery in stable condition. <ELECTRONICALLY SIGNED> By: Hanh Cazares MD 05/15/19 1258 1010 [id number] Cazares MD /nt
== END | disposition home or self-care (01) ==
LOC: M.SUR 06:34
PROVIDERS: Surgery
DX: Z45.2 Encounter for adjustment and management of vascular access device (principal); L92.8 Other granulomatous disorders of the skin and subcutaneous tissue; Z85.3 Personal history of malignant neoplasm of breast; Z79.899 Other long term (current) drug therapy; Z79.891 Long term (current) use of opiate analgesic; Z98.890 Other specified postprocedural states

== ENCOUNTER → 2019-04-17 | Outpatient (CLI) | payer OTHER ==
--- NOTE | 2019-04-18 09:38 | 2DMMODE ---
[place] [address] 2 D/M-MODE ECHOCARDIOGRAM Name: FLORENCIA FLORES Room: [facility]#: [id number] Admission: 04/17/19 Attend Phys: Thelma Fortune MD Discharge: Date of : 59 Date of Service: 04/18/19 0938 Report #: [id number] THIS REPORT FOR: //name// APPROVED REPORT Study performed: 04/17/2019 09:02:25 EXAM: Comprehensive 2D, Doppler, and color-flow Echocardiogram Patient Location: Out-Patient Status: routine BSA: 1.88 HR: 64 bpm Rhythm: NSR Other Information Study Quality: Good Indications Cancer 2D Dimensions IVSd: 11.92 (7-11mm) LVOT Diam: 20.55 (18-24mm) LVDd: 45.69 mm PWd: 7.36 (7-11mm) Ascending Ao: 35.86 (22-36mm) LVDs: 24.07 (25-40mm) Aortic Root: 35.33 mm Volumes Left Atrial Volume (Systole) LA ESV Index: 25.50 mL/m2 Aortic Valve AoV Peak Gio.: 1.08 m/s AO Peak Gr.: 4.63 mmHg LVOT Max P.38 mmHg AO Mean Gr.: 2.40 mmHg LVOT Mean P.82 mmHg LVOT Max V: 1.05 m/s AO V2 VTI: 22.43 cm LVOT Mean V: 0.60 m/s CASE (VTI): 3.65 cm2 LVOT V1 VTI: 24.64 cm Mitral Valve E/A Ratio: 0.82 MV Decel. Time: 227.91 ms MV E Max Gio.: 0.59 m/[place] [address] 2 D/M-MODE ECHOCARDIOGRAM Name: FLORENCIA FLORES Room: [facility]#: [id number] Admission: 04/17/19 Attend Phys: Thelma Fortune MD Discharge: Date of : 59 Date of Service: 04/18/19 0938 Report #: [id number] MV PHT: 66.09 ms MVA (PHT): 3.33 cm2 TDI E/Lateral E': 5.90 E/Medial E': 6.56 Medial E' Gio.: 0.09 m/s Lateral E' Gio.: 0.10 m/s Pulmonary Valve PV Peak Gio.: 0.80 m/s PV Peak Gr.: 2.58 mmHg Tricuspid Valve RAP Estimate: 5.00 mmHg TR Peak Gr.: 24.46 mmHg RVSP: 29.00 mmHg PA Pressure: 29.00 mmHg Left Ventricle The left ventricle is normal size. There is normal LV segmental wall motion. There is normal left ventricular wall thickness. Left ventricular systolic function is normal. LVEF is 65-70%. Grade I - abnormal relaxation pattern. Right Ventricle The right ventricle is normal size. The right ventricular systolic function is normal. Atria The left atrium size is normal. The right atrium size is normal. Aortic Valve The aortic valve is normal in structure. Trace aortic regurgitation. There is no aortic valvular stenosis. Mitral Valve The mitral valve is normal in structure. Trace mitral regurgitation. No evidence of mitral valve stenosis. Tricuspid Valve The tricuspid valve is normal in structure. Trace tricuspid regurgitation. No pulmonary hypertension. Pulmonic Valve The pulmonary valve is normal in structure. There is no pulmonic [place] [address] 2 D/M-MODE ECHOCARDIOGRAM Name: LEONARDZAINFLORENCIAALLY RAINES Room: [facility]#: [id number] Admission: 04/17/19 Attend Phys: Thelma Fortune MD Discharge: Date of : 59 Date of Service: 04/18/19 0938 Report #: [id number] Great Vessels The aortic root is normal in size. IVC is normal in size and collapses >50% with inspiration. Pericardium There is no pericardial effusion. <Conclusion> The left ventricle is normal size. There is normal left ventricular wall thickness. Left ventricular systolic function is normal. LVEF is 65-70%. Grade I - abnormal relaxation pattern. There is normal LV segmental wall motion. Trace aortic regurgitation. Trace mitral regurgitation. Trace tricuspid regurgitation. No pulmonary hypertension. IVC is normal in size and collapses >50% with inspiration. <ELECTRONICALLY SIGNED> By: Apolinar Collier MD, FACC 04/18/19937 7 7 Apolinar Collier MD, FACC /INF
== END ==
LOC: M.CRD 08:45
DX: C50.411 Malignant neoplasm of upper-outer quadrant of right female breast (principal); Z51.81 Encounter for therapeutic drug level monitoring; Z79.899 Other long term (current) drug therapy; Z17.0 Estrogen receptor positive status [ER+]

== ENCOUNTER → 2020-01-31 | Outpatient (CLI) | payer OTHER ==
[~2020-01-31] MED LIST changes: +LETROZOLE2.5 MG PO; +LIPITOR40 MG PO; +NEURONTIN 300M300 M2 PO
== END ==
LOC: M.ULTRA 12:55
DX: N64.4 Mastodynia (principal); Z85.3 Personal history of malignant neoplasm of breast

== ENCOUNTER → 2020-02-14 | Day surgery (SDC) | payer OTHER ==
[~2020-02-14] MED LIST changes: +ARIMIDEX PO; +CYMBALTA60 MG PO
--- NOTE | ~2020-02-14 | OP ---
[address] [address] OPERATIVE REPORT Name: FLORENCIA FLORES Room: [facility].#: [id number] Admission: 02/14/20 Attend Phys: Hanh Cazares MD Discharge: Date of : 59 Report #: [id number] THIS REPORT FOR: //name// cc: Yamilet Rocha MD, Emily G. MD ~ THIS REPORT FOR: //name// CC: Yamilet Cazares DATE OF SERVICE: 02/14/2020 PREOPERATIVE DIAGNOSIS: Malignant neoplasm, upper outer quadrant, right female breast. POSTOPERATIVE DIAGNOSIS: Malignant neoplasm, upper outer quadrant, right female breast. PROCEDURE: Removal of left subclavian vein MediPort. SURGEON: Hanh Cazares MD GAME PROGRAMMER: None. ANESTHESIA: MAC anesthesia. ESTIMATED BLOOD LOSS: 3 mL. SPECIMENS REMOVED: MediPort. COMPLICATIONS: None. FINDINGS: Intact port. INDICATIONS: The patient is a 64-year-old female with a breast cancer diagnosed in 02/2019. She underwent a breast surgery in 03/2019 and had a significant jaz burden with metastatic disease and underwent adjuvant chemotherapy. She was given the okay for port removal by Dr. Fortune. Risks and benefits for port removal were discussed with the patient, delineated in the H and P and she agreed to proceed. DESCRIPTION OF PROCEDURE: The patient was brought to the operating room after informed consent had been obtained, she was placed under MAC anesthesia in the supine position. Bilateral arms were placed at her sides. Her left chest was prepped and draped in normal sterile manner. Prior to all skin incisions, a combination of 1% lidocaine plain and 0.5% Marcaine with epinephrine was used. [place] [id number] OPERATIVE REPORT Name: FLORENCIA FLORES Room: [facility] Jesus#: [id number] Admission: 02/14/20 Attend Phys: Hanh Cazares MD Discharge: Date of : 59 Report #: [id number] Her previous MediPort incision was incised with a knife. This was deepened into the subcutaneous tissues using the Bovie electrocautery. The capsule of the MediPort was incised. It was then removed from the pocket. The tubing tract was closed with a single [id number] suture of 3-0 Vicryl. The deep dermal layers were closed with interrupted 3-0 Vicryl sutures and skin was closed with 4-0 Monocryl in a subcuticular manner. The wound was dressed with Dermabond dressing. The patient tolerated the procedure well. Sponge, lap and needle counts were correct x 2 at the end of procedure. She was transferred to recovery in stable condition. By: [id number] [id number] Ilan Cazares MD /nt
[2020-02-14 08:30] LABS: HEMATOCRIT 41.3 % (37.0-47.0); HEMOGLOBIN 13.9 gm/dL (12.0-15.0); MCH 31.3 pg (26.0-34.0); MCHC 33.7 g/dL (28.0-37.0); MCV 92.7 fL (80.0-100.0); MPV 7.4 fl. (7.2-11.1); RBC 4.46 mil/uL (4.20-5.00); RDW-CV 14.4 % (10.5-14.5); WBC 3.8 thou/uL (4.0-11.0)
[2020-02-14 08:46] LABS: CALCIUM 8.6 mg/dL (8.5-10.1); CREATININE 0.8 mg/dL (0.6-1.3); POTASSIUM 3.4 mmol/L (3.5-5.1)
--- NOTE | 2020-02-15 09:42 | EKG ---
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
== END | disposition home or self-care (01) ==
LOC: M.SUR 08:09
PROVIDERS: ATTEND Surgery
DX: Z45.2 Encounter for adjustment and management of vascular access device (principal); C50.411 Malignant neoplasm of upper-outer quadrant of right female breast; I10 Essential (primary) hypertension; M81.0 Age-related osteoporosis without current pathological fracture; Z98.890 Other specified postprocedural states; Z96.642 Presence of left artificial hip joint; Z11.59 Encounter for screening for other viral diseases; Z96.651 Presence of right artificial knee joint; Z79.899 Other long term (current) drug therapy; Z80.3 Family history of malignant neoplasm of breast; Z82.49 Family history of ischemic heart disease and other diseases of the circulatory system

== ENCOUNTER → 2020-02-24 | Outpatient (CLI) | payer OTHER | LOC: M.RAD 02-06 09:00 | PROVIDERS: ATTEND Radiology Radiation Oncology | DX: C50.411 Malignant neoplasm of upper-outer quadrant of right female breast (principal); Z17.0 Estrogen receptor positive status [ER+] ==

== ENCOUNTER → 2021-02-25 | Outpatient (CLI) | payer OTHER | LOC: M.RAD 10:55 | PROVIDERS: ATTEND Radiology Radiation Oncology | DX: C50.411 Malignant neoplasm of upper-outer quadrant of right female breast (principal); Z92.3 Personal history of irradiation; Z98.890 Other specified postprocedural states; Z17.0 Estrogen receptor positive status [ER+] ==